=== PATIENT | male | born 1950 | race Hispanic/Latino ===

== ENCOUNTER 2019-02-15 07:01 | Day surgery (SDC) | payer OTHER ==
[~2019-02-15 07:01] MED LIST: ASPI-1026 PO; ATOR20TA65 PO; LISI10TA7 PO; METO-391 PO; SODIUM CHLORIDE 0.9% 1000ML 1,000 ML IV ONE
[2019-02-15 08:08] VITALS: BP 126/71
[2019-02-15] MEDS ORDERED: SODIUM CHLORIDE 0.9% 1000ML 1,000 ML IV ONE (08:14)
[2019-02-15] MEDS ORDERED: FENTANYL CITRATE PF 50 MCG/1 ML 2ML VIAL ONE (08:45)
[2019-02-15] MEDS ORDERED: MIDAZOLAM HCL 1 MG/ML 2ML VIAL ONE (08:46)
[2019-02-15 09:15] VITALS: BP 116/56
[2019-02-15 09:20] VITALS: BP 129/65
[2019-02-15 09:25] VITALS: BP 124/63
[2019-02-15 09:35] VITALS: BP 122/64
== END 2019-02-15 09:45 | disposition home or self-care (01) ==
LOC: ENDO 07:01
PROVIDERS: ATTEND Surgery
DX: Z12.11 Encounter for screening for malignant neoplasm of colon (principal); E78.00 Pure hypercholesterolemia, unspecified; I10 Essential (primary) hypertension; Z79.82 Long term (current) use of aspirin; Z79.899 Other long term (current) drug therapy; Z98.890 Other specified postprocedural states
CPT/HCPCS: 45378; A4215; A4221; A4222; A4223; A4606; A4615; A4663; J2250; J3010; J7030 ×2; 99152